=== PATIENT | male | born 1985 | race Caucasian/White ===

== ENCOUNTER 2024-08-03 20:19 | Emergency (ER) | payer OTHER, SELFPAY ==
[2024-08-03 20:24] VITALS: BP 137/78
[2024-08-03 20:33] VITALS: BP 144/79; BMI 22.0
[2024-08-03 20:46] LABS: % Basophils 0.6 % (0-2); % Eosinophils 1.9 % (0-6); % Immature Granulocytes 0.3 % (0-0.5); % Lymphocytes 35.2 % (20.5-51.1); % Monocytes 13.1 % (1.7-9.3); % Neutrophils 48.9 % (42.2-75.2); Absolute Eosinophils 0.1 10^3/uL (0-0.7); Absolute Lymphocytes 2.5 10^3/uL (1.2-3.4); Absolute Monocytes 0.9 10^3/uL (0.1-0.6); Absolute Neutrophils 3.5 10^3/uL (1.4-6.5); Hematocrit 42.9 % (39.0-52.0); Hemoglobin 15.2 g/dL (13.0-18.0); Mean Corp Hgb Conc. 35.4 g/dL (33.0-37.0); Mean Corpuscular Hgb 32.1 pg (27.0-31.0); Mean Corpuscular Volume 90.7 fL (80.0-94.0); Mean Platelet Volume 9.4 fL (7.4-10.4); Nucleated Red Blood Cells % 0 % (-); Platelet Count 241 10^3/uL (130-400); Red Blood Cell Count 4.73 10^6/uL (4.70-6.10); Red Cell Dist. Width 12.1 % (11.5-14.5); White Blood Cell Count 7.2 10^3/uL (4.8-10.8)
[2024-08-03 21:00] VITALS: BP 123/73
[2024-08-03 21:02] LABS: ALT (SGPT) 20 U/L (0-50); AST (SGOT) 19 U/L (17-59); Albumin 4.5 g/dl (3.5-5.0); Alkaline Phosphatase 76 U/L (38-126); Blood Urea Nitrogen 20 mg/dl (9-20); Calcium 9.6 mg/dl (8.4-10.2); Carbon Dioxide 31 mmol/L (22-30); Chloride 102 mmol/L (98-107); Estimated Creatinine Clearance 101 ml/min; Glucose 105 mg/dl (70-99); Potassium 4.1 mmol/L (3.5-5.1); Sodium 142 mmol/L (135-145); Total Bilirubin 0.7 mg/dl (0.2-1.3); eGFR > 60.00
[2024-08-03 21:14] LABS: Troponin I < 0.012 ng/ml
[2024-08-03] MEDS: VALIUM 5 MG PO (21:28)
[2024-08-03] MEDS: NSS 1000 IV (21:28)
[2024-08-03 22:00] VITALS: BP 115/61
[2024-08-03 23:29] VITALS: BP 126/73
[2024-08-03] MEDS: TORADOL 30 MG IV (23:50)
[2024-08-04] VITALS: BP 121/69
--- NOTE | 2024-08-04 00:35 | ED.GENMED ---
History of Present Illness
General
Chief Complaint: Chest Pain
Source: patient
Exam Limitations: none
Time Seen by Provider: 08/03/24 20:57
Nursing documentation reviewed up to this point in time: agreed with
History of Present Illness
History of Present Illness:
31-year-old male presenting to the emergency department today with concerns for central chest spasm like this worse with movement thinks he is having muscle spasms unclear how this occurred over an inciting event. Denies any shortness of breath
nausea vomiting numbness weakness denies similar symptoms in the past. No recent injuries.
Past History
Past History
ED Past Medical History: None
ED Past Surgical History: None
Social History
Tobacco: Non-smoker
Alcohol: None
Drug: None
Personal:
Living: with family
Employment: Employed
Review of Systems
Review of Systems
Allergies reviewed?: Yes
All Other Systems: ROS reviewed and negative except as documented in HPI and ROS
Phy Exam
Physical Exam
Physical Exam:
GENERAL: Alert , in no apparent distress
EYE: pupils equal and reactive
NECK: Supple, no significant adenopathy.
ENT: o/p clr, mmm.
CARDIAC: Regular rate and rhythm .
LUNGS: Clear breath sounds bilaterally, no acute respiratory distress, no wheezes/rales/rhonchi
ABDOMEN: Soft, without focal tenderness, no r/g, no cvat
NEUROLOGICAL: Alert and oriented, no focal neuro deficits
SKIN: Warm and dry, skin intact.
MUSCULOSKELETAL: No edema, well perfused.
PSYCH: Normal and appropriate interaction.
Scores
Heart Score for Chest Pain Patients
STEMI patient?: No
History: Slightly or Non-Suspicious
ECG: Normal
Age: </= 45 years
Risk Factors: No Risk Factors
Troponin: </= Normal Limit
Heart Score for Chest Pain Patients: 0
Heart Score Risk: 2.5% MACE over next 6 weeks
Course
Orders/Labs/Results
Orders:
Orders
08/03/24
Electrocardiogram (*1) Stat
Comment: ALREADY DONE
08/03/24 20:40
Complete Blood Count/With Diff Urgent
Comprehensive Metabolic Panel Urgent
Troponin I Urgent
08/03/24 21:23
0.9% Sodium Chloride 1000 ml [Nss] 1,000 ml IV BOLUS
Diazepam [Valium] 5 mg PO NOW STA
Chest [CR Chest - 2 Views ] Urgent
Comment:
Reason For Exam: cp
08/03/24 23:31
Ketorolac [Toradol] 30 mg IV NOW STA
Abnormal Lab Results
08/03/24
20:40
MCH 32.1 H pg
(27.0-31.0)
Absolute Monos (auto) 0.9 H 10^3/uL
(0.1-0.6)
Monocytes % 13.1 H %
(1.7-9.3)
Carbon Dioxide 31 H mmol/L
(22-30)
Glucose 105 H mg/dl
(70-99)
08/03/24 20:40
08/03/24 20:40
Vital Signs
Initial and Last Documented VS:
Initial Vital Signs
Pulse Resp BP Pulse Ox
79 18 137/78 99
08/03/24 20:24 08/03/24 20:24 08/03/24 20:24 08/03/24 20:24
Last Documented Vital Signs
Temp Pulse Resp BP Pulse Ox
97.8 F 72 20 121/69 96
08/03/24 23:49 08/04/24 00:00 08/04/24 00:00 08/04/24 00:00 08/04/24 00:00
MDM/Problems Addressed
MDM/Problems Addressed:
39-year-old male presenting to the emergency department today with concerns of chest pain his central chest that he believes is muscle spasm. Here vital signs are normal patient in no distress when sitting still labs unremarkable EKG normal chest
x-ray normal troponin negative. Does not appear to be consistent with any life-threatening etiology. Possibly could be muscle spasms given Valium patient did not seem to have significant improvement. Costochondritis also possible, given dose of
Toradol. Discharged in no distress advised for close outpatient follow-up return precautions given
*Critical Care Note
Total Time (30-74mins, 75-104mins- exclusive of procedures): Not Applicable
ED Attending Note
-
Portions of this chart may have been created with voice recognition software.� Occasional wrong word or��sound alike� substitutions may have occurred due to the inherent limitations of voice recognition software.
Discharge Plan
Departure
Patient Disposition: Home (Routine Discharge)
Date of Disposition: 08/04/24
Time of Disposition: 00:58
Patient with high blood pressure during this ER visit?: No
Condition: Good
Covid-19: Not Applicable
Discharge Problem:
Chest pain
Instructions: Chest Pain PCP Follow Up
Prescriptions:
No Action
No Current Medications
0
Referrals:
NONE,* [Family Provider] -
Activity Restrictions/Additional Instructions:
You came to the emergency department today with concerns of chest pain. Here you have a reassuring assessment. This may be chest wall inflammation. Please take ibuprofen 600 mg every 6 hours help with discomfort. Return for any worsening, new or
concerning symptoms.
Interventions
Interventions:
*Risk Screen - Suicide Last Done: 08/03/24 20:26
*General Assessment Last Done: 08/03/24 20:25
*Neglect/Abuse Screening Last Done: 08/03/24 20:26
*ED- Fall Risk Assessment Last Done: 08/03/24 23:59
*ED COVID-19 Vaccine History Last Done: 08/03/24 20:25
*Nursing Disposition Last Done: 08/04/24 01:20
ED- Cardiac Assessment Last Done: 08/03/24 23:59
Discharge Date and Time
Discharge Date/Time: 08/04/24 01:20
Print Language: BULGARIAN
== END 2024-08-04 01:20 | disposition home or self-care (01) ==
LOC: EMR 20:19
PROVIDERS: EMERGENCY PHYSICIAN Emergency Medicine
DX: R07.9 Chest pain, unspecified (principal)
CPT/HCPCS: 99284; 96374; 96361; 71046; 80053; 84484; 85025; 93005